=== PATIENT | female | born 1940 | race Caucasian/White ===

== ENCOUNTER 2019-01-07 13:28 | Observation (INO) | payer MEDICARE ==
[~2019-01-07] VITALS: Ht 142.2 cm; Wt 55.0 kg
--- NOTE | 2019-01-07 13:30 | NUR ---
PT TO ROOM BY EMS STRETCHER.
[2019-01-07 13:52] LABS: HEMATOCRIT 36.2 % (37.0-47.0); HEMOGLOBIN 11.9 g/dl (12.0-16.0); IMMATURE GRANULOCYTES 0.3 % (0.0-5.0); MEAN CORPUSCULAR HGB 31.6 pG CALC (26.0-32.0); MEAN CORPUSCULAR HGB CONC 32.9 g/L CALC (32.0-36.0); NEUT# 6.92 thou/uL (2.00-7.15); RED BLOOD COUNT 3.77 mill/uL (4.20-5.60); RED CELL DISTRI WIDTH 13.2 % (11.5-15.5)
[2019-01-07 14:05] LABS: ANION GAP 15 (6-22 (CALC)); BUN 13 mg/dL (8-23); BUN/CREATININE RATIO 15 (12-20 (CALC)); CARBON DIOXIDE 27 mmol/l (22-30); CHLORIDE 103 mmol/l (95-108); CREATININE 0.9 mg/dL (0.5-1.0); GFR > 60 ML/MIN (>=60 (CALC)); GFR FOR AFR.AMER. > 60 ML/MIN (>=60 (CALC)); POTASSIUM 4.4 mmol/l (3.5-5.1); SODIUM 140 mmol/l (137-146)
--- NOTE | 2019-01-07 14:05 | NUR ---
PT RESTING IN STRETCHER IN NAD TALKING WITH FAMILY. DAUGHTER REPORTS THIS HAPPENS OFTEN TO HER.
[2019-01-07] MEDS ORDERED: NOVOLIN 70/30 SC ×2 (14:06)
[2019-01-07] MEDS ORDERED: METFORMIN1000 MG PO (14:07)
[2019-01-07] MEDS ORDERED: PRAVASTATIN40 MG PO (14:07)
[2019-01-07] MEDS ORDERED: LISINOP/HCTZ1 TA1 PO (14:07)
[2019-01-07] MEDS ORDERED: COREG3.125 MG PO (14:08)
--- NOTE | 2019-01-07 14:20 | NUR ---
PT SITTING UPRIGHT IN STRETCHER EATING MEAL AT THIS TIME. DAUGHTER AT BEDSIDE. PT AWARE OF PLAN OF CARE AND WAIT TIME.
[2019-01-07 14:36] LABS: TSH, 3RD GENERATION 0.96 uIU/mL (0.47 - 4.68)
--- NOTE | 2019-01-07 14:38 | NUR ---
MD AT BEDSIDE TO DISCUSS RESULTS. D10 INFUSING WITH NO DIFFICULTY. PT DENIES ANY NEEDS AT THIS TIME. CALL GONZALEZ WITHIN REACH.
--- NOTE | 2019-01-07 14:42 | NUR ---
Admission Note Report Given to: RAINA HILL Transported by: Wheelchair X Stretcher Transported with: X Nurse Transporter X Patent IV O2 X Anesthesia Technician PT TO ICU ROOM 1 ACCOMPANIED BY DAUGHTER IN STABLE CONDITION. CARE RELINQUISHED TO RAINA HILL.
--- NOTE | 2019-01-07 14:55 | NUR ---
PT ASSISTED TO BSC. APPX 200 CC OF YELLOW URINE EMPTIED. URINE SPECIMEN SENT TO LAB. EKG PERFORMED. PT ASSISSTED BACK INTO BED. MONITOR IN PLACE. DAUGHTER BEDSIDE.
--- NOTE | 2019-01-07 15:18 | NUR ---
DR OLGUIN AT BEDSIDE
--- NOTE | 2019-01-07 15:20 | NUR ---
PT RESTING WITH EYES CLOSED IN STRETCHER AND AWAKENS TO VERBAL STIMULI. ACCU-CHECK 141 AT THIS TIME. D 10 INFUSING, SWELLING NOTED TO IV SITE WITH MINIMAL PAIN. RIGHT FOREARM IV SITE INFILTRATED. IV SITE REMOVED AND WRAPPED WITH COBAN AND HEAT PACK APPLIED.
--- NOTE | 2019-01-07 15:30 | NUR ---
NEW IV SITE INITIATAED AND IV D10 INFUSING WITH NO DIFFICULTY. CALL GONZALEZ WITHIN REACH.
[2019-01-07 15:43] LABS: URINE BILIRUBIN - DIPSTICK NEGATIVE (NEGATIVE); URINE BLOOD DIPSTICK NEGATIVE (NEGATIVE); URINE COLOR YELLOW; URINE GLUCOSE - DIPSTICK NEGATIVE (NEGATIVE); URINE KETONE NEGATIVE (NEGATIVE); URINE LEUK ESTERASE TRACE (NEGATIVE); URINE PH 6.5 (4.5-8.0); URINE PROTEIN - DIPSTICK NEGATIVE (NEG-TRACE); URINE SPECIFIC GRAVITY <=1.005; URINE UROBILINOGEN - DIPSTICK 0.2 E.U./dL (0.2)
[2019-01-07 15:49] LABS: URINE NITRITE - DIPSTICK POSITIVE (Negative)
--- NOTE | 2019-01-07 15:50 | NUR ---
DR OLGUIN AT BEDSIDE.
[2019-01-07 16:01] LABS: URINE BACTERIA MODERATE hpf; URINE RBC 0-2 RBC/hpf (0-5); URINE SQUAMOUS EPITHELIAL CELL FEW EPI/hpf (0-FEW)
--- NOTE | 2019-01-07 16:20 | NUR ---
REPORT CALLED TO RAINA HILL.
--- NOTE | 2019-01-07 16:36 | NUR ---
ACCSELIN RODRIGUEZ 187. PHARMACY AT BEDSIDE.
--- NOTE | 2019-01-07 16:42 | NUR ---
Admission Note Report Given to: RAINA HILL Transported by: Wheelchair X Stretcher Transported with: X Nurse Transporter X Patent IV O2 X Microwave Oven Assembler PT TO ICU BED 1 IN STABLE CONDITION. PT TRANSFERRED SELF TO BED WITH NO DIFFICULTY. CARE RELINQUISHED TO RAINA HILL.
--- NOTE | 2019-01-07 16:43 | NUR ---
PT ABLE TO WALK WITH STEADY GAIT TO BATHROOM. POC PENDING CONSULT WITH CARDIOLOGY.
--- NOTE | 2019-01-07 16:49 | NUR ---
PT ARRIVED TO ICU 1 BY STRETCHER WITH TELE, O2, & IVF. PT ABLE TO SCOOT OVER TO NEW BED BY HERSELF. PT HAD TO USE THE BSC BEFORE ATTACHED TO MONITOR.
[2019-01-07 17:15] VITALS: BP 140/68
--- NOTE | 2019-01-07 17:23 | NUR ---
DAUGHTER LEAVING WITH PTS PURSE & OTHER BELONGINGS. PT KEPT SHORTS, PANTIES, & SLIPPERS.
--- NOTE | 2019-01-07 17:24 | NUR ---
IV D10 INCREASED TO 150ML/HR PER PHARMACY.
--- NOTE | 2019-01-07 17:51 | NUR ---
PT IS POOR HISTORIAN, SARCASTIC ANSWERS, STATES SHE IS MEAN. STATES SHE DOESNT REMEMBER ANYTHING BEFORE ARRIVING TO ED. DENIES PAIN. STATES REG BM YESTERDAY. TAKES ADVIL @HOME FOR PAIN. DENIES SMOKING, ALCOHOL, REC DRUGS. NO HEARING AIDS, OR DENTURES. YES GLASSES. LIVES WITH SON IN [place]. VISITING DAUGTER IN [place]. NO RECENT FALLS. TRANSPORTED, NOT DRIVES. RELIGIOUS: [place]. SPEAKS COLOMBIAN. NO HOME HEALTH OR RECENT HOSPITALIZATIONS. BREATHING EVEN/UNLABORED, LUNGS CTA. S1/S2 HEART SOUNDS. NO EDEMA. -3 SEC CAP REFILL. A&Ox3. NO NEURO ABNORMALITIES. JOHNSON. SKIN PINK/COOL/DRY. SPEECH CLEAR. ABD SOFT/NONTENDER, ACTIVE BS. STATES SHE HAS FREQUENT URINATION, NO BURNING. BSC NEAR BED. URINE YELLOW/CLEAR. STRONG PULSES.
--- NOTE | 2019-01-07 17:51 | NUR ---
PT SITTING UP IN BED, EATING DINNER. ACCUCHECK COMPLETED.
[2019-01-07 19:00] VITALS: BP 147/60
--- NOTE | 2019-01-07 19:20 | NUR ---
PATIENT WITH HOB 45 DEGREES. NO ACUTE DISTRESS NOTED. WAS ASSISTED TO BSC, MINIMAL ASSIST. URINE YELLOW AND CLEAR. NO SOB NOTED, ON RA. HEAD TO TOE NURSING ASSESSMENT COMPLETED. RAC 22G IV INTACT AND FLUSHING. DEXTROSE 10% INFUSING. NO COMPLAINTS OF PAIN. SINUS RHTYHM ON TELEMETRY. AFEBRILE. POC FOR TONIGHT EXPLAINED. SELF REPOSITIONS. CALL LIGHT WITHIN REACH. WILL CONTINUE TO MONITOR.
--- NOTE | 2019-01-07 20:00 | NUR ---
DAUGHTER AND VISTING PATIENT. DAUGHTER BROUGHT PATIENT'S CURRENT HOME MEDICATIONS. WILL MAKE A LIST OF ALL MEDICATIONS.
[2019-01-07 20:15] VITALS: BP 147/52
--- NOTE | 2019-01-07 20:30 | NUR ---
NOTIFIED DR FOX OF PATIENT'S 3RD BLOOD SUGAR, NOTIFIED OF DR OLGUIN'S ORDERS TO ORDER A SLIDING SCALE IF 3RD BLOOD SUGAR IS GREATER THAN 180. NEW ORDERS RECEIVED. ALSO DISCONTINUED IV FLUIDS PER ORDERS.
[2019-01-07 21:15] VITALS: BP 111/50
--- NOTE | 2019-01-07 22:00 | NUR ---
PATIENT ASSISTED TO RESTROOM. WITH MINIMAL ASSIST. NO ACUTE DISTRESS SHOWN. ON RA. SINUS RHTYHM ON TELEMETRY. CALL LIGHT WITHIN REACH.
[2019-01-07 22:15] VITALS: BP 107/74; BP 138/59
[2019-01-07 23:15] VITALS: BP 107/60
[2019-01-08] VITALS (10 sets, daily range): BP systolic 102–150; BP diastolic 38–75
--- NOTE | 2019-01-08 00:18 | NUR ---
PATIENT LAYING WITH HOB 45 DEGREES. NO ACUTE DISTRESS HOWN. WATCHES TV. NO COMPLAINTS. CALL LIGHT WITHIN REACH.
--- NOTE | 2019-01-08 02:05 | NUR ---
PATIENT ASSISTED TO BSC. NO DIFFICULTY TRANSFERRING NOTED. CALL LIGHT WITHIN REACH.
--- NOTE | 2019-01-08 02:19 | NUR ---
PATIENT ABLE TO HAVE BM. MODERATE FORMED BROWN BM. NO DIFFICULTY TRANSFERRING BACK TO BED. CALL LIGHT WITHIN REACH.
--- NOTE | 2019-01-08 04:10 | NUR ---
patient lays with hob 30 degrees. lays with eyes closed. no acute distress shown. arouses easily with stimuli. on room air, sats 96 %. sr on telemetry. no complaints of pain. call light within reach. will continue to monitor.
--- NOTE | 2019-01-08 05:20 | NUR ---
PATIENT UP TO BSC, PARTICIPATES WITH BED BATH. NO DIFFICULTY NOTED WITH ADL'S. LINENS CHANGED.
[2019-01-08 05:45] LABS: HEMATOCRIT 34.8 % (37.0-47.0); HEMOGLOBIN 11.6 g/dl (12.0-16.0); MEAN CELL VOLUME 95.1 fL CALC (80.0-100.0); MEAN CORPUSCULAR HGB 31.7 pG CALC (26.0-32.0); MEAN CORPUSCULAR HGB CONC 33.3 g/L CALC (32.0-36.0); RED BLOOD COUNT 3.66 mill/uL (4.20-5.60); RED CELL DISTRI WIDTH 13.2 % (11.5-15.5)
--- NOTE | 2019-01-08 06:00 | NUR ---
PATIENT RESTS WITH EYES CLOSED, EASILY AROUSES TO NOISE. NEW ICED WATER PROVIDED. NO ACUTE DISTRESS SHOWN. ON ROOM AIR. SR ON TELEMETRY. CALL LIGHT WITHIN REACH. WILL CONTINUE TO MONITOR.
[2019-01-08 06:06] LABS: ANION GAP 13 (6-22 (CALC)); BUN 10 mg/dL (8-23); BUN/CREATININE RATIO 11 (12-20 (CALC)); CARBON DIOXIDE 26 mmol/l (22-30); CHLORIDE 103 mmol/l (95-108); CREATININE 0.8 mg/dL (0.5-1.0); GFR > 60 ML/MIN (>=60 (CALC)); GFR FOR AFR.AMER. > 60 ML/MIN (>=60 (CALC)); POTASSIUM 4.7 mmol/l (3.5-5.1); SODIUM 137 mmol/l (137-146)
--- NOTE | 2019-01-08 06:07 | NUR ---
PATIENT LAYS WITH HOB 30 DEGREES. WATCHES TV. NO ACUTE DISTRESS SHOWN. NO COMPLAINTS. CALL LIGHT WITHIN REACH. WILL CONTINUE TO MONITOR.
--- NOTE | 2019-01-08 07:18 | NUR ---
PT SLEEPING IN BED. NO S/S OF DISTRESS. WILL CONTINUE TO MONITOR. RECVD REPORT FROM RAINA COOK @START OF SHIFT.
--- NOTE | 2019-01-08 07:49 | NUR ---
PT ASSISTED UP TO CHAIR IN ROOM, EATING BREAKFAST.
--- NOTE | 2019-01-08 09:20 | NUR ---
PT MEDICATED, EDUCATED ON MEDICATIONS & INDICATIONS. ASSISTED PT TO BSC.
--- NOTE | 2019-01-08 10:47 | NUR ---
PASTORA, NUTRITION @BEDSIDE. PT REFUSING EDUCATION.
--- NOTE | 2019-01-08 11:47 | NUR ---
PT SITTING UP IN CHAIR, EATING LUNCH. APPEARS HAPPY. WAITING FOR MD ROUNDS FOR DISPO.
--- NOTE | 2019-01-08 14:40 | NUR ---
DR OLGUIN @BEDSIDE.
--- NOTE | 2019-01-08 15:07 | NUR ---
PT EDUCATED ON SLIDING SCALE & GIVEN A LARGE PRINT GUIDE. PT VERBALIZED UNDERSTANDING TEACHING BACK
[2019-01-08] MEDS ORDERED: HUMULIN R500 UNIT/M SC (15:14)
[2019-01-08] MEDS ORDERED: KEFLEX250 MG PO (15:16)
--- NOTE | 2019-01-08 16:00 | NUR ---
PT/DAUGHTER EDUCATED ON DC INSTRUCTIONS, GIVEN RX x2.
--- NOTE | 2019-01-08 16:04 | NUR ---
PT REFUSED WC, AMBULATED OUT TO UNIT WITH STEADY GAIT WITH DAUGHTER.
[2019-01-08] MEDS ORDERED: MACROBID100 MG PO (16:09)
== END 2019-01-08 16:04 | disposition home or self-care (01) ==
LOC: ED 13:28 → ED-I 14:39 → ED 14:59 → ICU 15:00
PROVIDERS: Family Medicine; Internal Medicine; ADMIT Internal Medicine; ATTEND Internal Medicine
DX: T38.3X1A Poisoning by insulin and oral hypoglycemic [antidiabetic] drugs, accidental (unintentional), initial encounter (principal); E11.649 Type 2 diabetes mellitus with hypoglycemia without coma; N39.0 Urinary tract infection, site not specified; I10 Essential (primary) hypertension; B96.20 Unspecified Escherichia coli [E. coli] as the cause of diseases classified elsewhere; Z91.14 Patient's other noncompliance with medication regimen; Z79.4 Long term (current) use of insulin
CPT/HCPCS: J1650